=== PATIENT | female | born 2000 | race Caucasian/White ===

== ENCOUNTER 2022-09-21 23:17 | Emergency (ER) | payer OTHER ==
[2022-09-21 23:33] VITALS: TEMP 98
[2022-09-22 01:51] LABS: Basophils % (A) 0 %; Eosinophils # (A) 0.1 k/uL (0-0.7); Eosinophils % (A) 1 %; HCT 39.2 % (34.0-46.0); Lymphocytes # (A) 3.5 k/uL (1.0-4.8); Lymphocytes % (A) 40 %; MCH 30.6 pg (25.0-35.0); MCV 92.6 fL (80.0-100.0); Mean Platelet Volume 8.6; Monocytes # (A) 0.4 k/uL (0-1.0); Monocytes % (A) 5 %; Neutrophils # (A) 4.5 k/uL (1.3-7.7); Neutrophils % (A) 52 %; Platelet Count 361 k/uL (150-450); RBC 4.24 m/uL (3.80-5.40); WBC 8.7 k/uL (3.8-10.6)
[2022-09-22 02:02] LABS: ALT 15 U/L (4-34); AST 25 U/L (14-36); African American GFR (CKD) >90 (>60 ml/min/1.73 sqM); Albumin 4.2 g/dL (3.5-5.0); Alkaline Phosphatase 77 U/L (38-126); Anion Gap 11 mmol/L; Blood Urea Nitrogen 7 mg/dL (7-17); Calcium 9.4 mg/dL (8.4-10.2); Carbon Dioxide 22 mmol/L (22-30); Chloride 107 mmol/L (98-107); Glucose 98 mg/dL (74-99); Non-African American GFR(CKD) >90 (>60 ml/min/1.73 sqM); Potassium 4.1 mmol/L (3.5-5.1); Sodium 140 mmol/L (137-145); Total Bilirubin 0.2 mg/dL (0.2-1.3); Total Protein 7.5 g/dL (6.3-8.2)
[2022-09-22 02:12] LABS: Prothrombin Time 10.6 sec (9.0-12.0)
[2022-09-22 02:17] LABS: HCG,Quantitative Serum 2805.2 mIU/mL
--- NOTE | 2022-09-22 02:48 | US ---
EXAM: US First Trimester , Transabdominal CLINICAL HISTORY: pain TECHNIQUE: Real-time transabdominal obstetrical ultrasound of the maternal pelvis and a first trimester with image documentation. COMPARISON: No relevant prior studies available. FINDINGS: Gestation: There is an irregular hypoechoic structure noted centrally within the lower uterus, with a mean diameter consistent measuring 1.5 cm. No pole or yolk sac identified internally. Placenta/amniotic fluid: Cannot be adequately evaluated due to the early gestational age. Uterus/cervix: The uterus measures 7.2 x 5.2 x 4.1 cm. No myometrial mass. Ovaries: The right ovary measures 3.1 x 1.7 x 1.6 cm. The left ovary measures 2.4 x 1.6 x 1.4 cm. There is a cystic structure in the left ovary. No adnexal mass. Free fluid: No free fluid. IMPRESSION: There is an irregular hypoechoic structure noted centrally within the lower uterus, with a mean diameter consistent measuring 1.5 cm. No pole or yolk sac identified internally. While the mean sac diameter is consistent with an estimated gestational 5 weeks 5 days, which may be too early to evaluate for a detectable pole, irregularity of the gestational sac is suspicious for potential failure. Serial beta-hCG levels with potential short-term interval sonographic follow-up may be appropriate.
--- NOTE | 2022-09-22 03:20 | ED ---
Female Urogenital HPI - General Chief complaint: Vaginal Bleeding Stated complaint: Vaginal Bleeding, Dizziness Time Seen by Provider: 09/21/22 23:30 Source: patient Mode of arrival: ambulatory Limitations: no limitations - History of Present Illness Initial comments: 22-year-old female who is approximately 5-6 weeks who presents to the emergency department reporting vaginal bleeding. States that she just went to the clinic last week on . She had an ultrasound which did not demonstrate a yolk sac. She has an appointment to follow-up with Dr. Gaytan on Sunday. This evening the patient began having heavy vaginal bleeding. States that it is heavier than one of her normal menstrual cycles. There is some clots. States that she felt lightheaded. She called her OB office recommended that she come into the emergency room for evaluation. She admits some lower abdominal cramping. No nausea or vomiting. No other alleviating, precipitating or modifying factors - Related Data Previous Rx's Medication Instructions Recorded Ketorolac [Toradol] 10 mg PO TID #30 tab 09/24/22 Ondansetron Odt [Zofran Odt] 4 mg PO Q8HR PRN #20 tab 09/24/22 Allergies Allergy/AdvReac Type Severity Reaction Status Date / Time No Known Allergies Allergy Verified 09/21/22 23:33 Review of Systems ROS Statement: Those systems with pertinent positive or pertinent negative responses have been documented in the HPI. ROS Other: All systems not noted in ROS Statement are negative. Past Medical History Past Medical History: No Reported History History of Any Multi-Drug Resistant Organisms: None Reported Past Surgical History: Tonsillectomy Past Psychological History: Anxiety Smoking Status: Current some day smoker Past Alcohol Use History: Rare Past Drug Use History: Marijuana General Exam Limitations: no limitations General appearance: alert, in no apparent distress Head exam: Present: atraumatic, normocephalic, normal inspection Eye exam: Present: normal appearance, PERRL, EOMI. Absent: scleral icterus, conjunctival injection, periorbital swelling ENT exam: Present: normal exam, mucous membranes moist Neck exam: Present: normal inspection. Absent: tenderness, meningismus, lymphadenopathy Respiratory exam: Present: normal lung sounds bilaterally. Absent: respiratory distress, wheezes, rales, rhonchi, stridor Cardiovascular Exam: Present: regular rate, normal rhythm, normal heart sounds. Absent: systolic murmur, diastolic murmur, rubs, gallop, clicks GI/Abdominal exam: Present: soft, normal bowel sounds. Absent: distended, tende rness, guarding, rebound, rigid Extremities exam: Present: normal inspection, full ROM, normal capillary refill. Absent: tenderness, pedal edema, joint swelling, calf tenderness Back exam: Present: normal inspection Neurological exam: Present: alert, oriented X3, CN II-XII intact Psychiatric exam: Present: normal affect, normal mood Skin exam: Present: warm, dry, intact, normal color. Absent: rash Course Vital Signs 09/21/22 09/22/22 23:30 03:28 Temperature 98.0 F Pulse Rate 74 62 Respiratory 20 18 Rate Blood Pressure 108/75 106/73 O2 Sat by Pulse 98 97 Oximetry Medical Decision Making - Medical Decision Making Was pt. sent in by a medical professional or institution (, PA, PIN PULLER, urgent care, hospital, or fdc...) When possible be specific @ -LUMBER TRIMMER Did you speak to anyone other than the patient for history (EMS, parent, family, police, friend...)? What history was obtained from this source @ -No Did you review nursing and triage notes (agree or disagree)? Why? @ -I reviewed and agree with nursing and triage notes Were old charts reviewed (outside hosp., previous admission, EMS record, old EKG, old radiological studies, urgent care reports/EKG's, fdc records)? Report findings @ -No old charts were reviewed Differential Diagnosis (chest pain, altered mental status, abdominal pain women, abdominal pain men, vaginal bleeding, weakness, fever, dyspnea, syncope, headache, dizziness, GI bleed, back pain, seizure, CVA, palpatations, mental h ealth, musculoskeletal)? @ -Differential Vaginal Bleeding: Spontaneous , threatened , molar , ectopic , bloody show, incompetent cervix, abruptioplacenta, placenta previa, uterine rupture, dysfunctional uterine bleeding, hemorrhage, uterine fibroids, this is not meant to be an all-inclusive list. EKG interpreted by me (3pts min.). @ -Not completed X-rays interpreted by me (1pt min.). @ -None done CT interpreted by me (1pt min.). @ -None done U/S interpreted by me (1pt. min.). @ -Yes and demonstrates intrauterine structure with no pole or yolk sac What testing was considered but not performed or refused? (CT, X-rays, U/S, labs)? Why? @ -None What meds were considered but not given or refused? Why? @ -None Did you discuss the management of the patient with other professionals (professionals i.e. , PA, PIN PULLER, lab, RT, psych nurse, social insurance adviser, laboratory aide, teacher, telecommunications officer, bilingual patient support caseworker)? Give summary @ -No Was smoking cessation discussed for >3mins.? @ -No Was critical care preformed (if so, how long)? @ -No Were there social determinants of health that impacted care today? How? (Homelessness, low income, unemployed, alcoholism, drug addiction, tra nsportation, low edu. Level, literacy, decrease access to med. care, longterm, rehab)? @ -No Was there de-escalation of care discussed even if they declined (Discuss DNR or withdrawal of care, Hospice)? DNR status @ -No What co-morbidities impacted this encounter? (DM, HTN, Smoking, COPD, CAD, Cancer, CVA, ARF, Chemo, Hep., AIDS, mental health diagnosis, sleep apnea, morbid obesity)? @ -None Was patient admitted / discharged? Hospital course, mention meds given and route, prescriptions, significant lab abnormalities, going to OR and other pertinent info. @ -Upon arrival patient was placed in room 33. Thorough history and physical exam was performed. Laboratory studies were conducted. Beta Quant is 2805. Ultrasound demonstrates regular hypoechoic structure noted centrally within the lower uterus. No pole or yolk sac. Mean diameter is 5 weeks 5 days. This information is given to the patient. She will follow up on Sunday morning for repeat beta hCG. She is instructed to come to the ER for an outpatient draw. Results will be sent to her LUMBER TRIMMER. She will need a repeat ultrasound if the beta Quant is improving. If it is falling it needs to fall to 0 before she can attempt to get again. If she has any heavy bleeding or uncontrolle d pain the patient needs to return to the emergency room. Patient was agreeable and discharged in stable condition Undiagnosed new problem with uncertain prognosis? @ -Yes Drug Therapy requiring intensive monitoring for toxicity (Heparin, Nitro, Insulin, Cardizem)? @ -No Were any procedures done? @ -No Diagnosis/symptom? @ -Acute vaginal bleeding, of undetermined location, suspected intrauterine with threatened miscarriage Acute, or Chronic, or Acute on Chronic? @ -Acute Uncomplicated (without systemic symptoms) or Complicated (systemic symptoms)? @ -complicated Side effects of treatment? @ -No Exacerbation, Progression, or Severe Exacerbation? @ -No Poses a threat to life or bodily function? How? (Chest pain, USA, [place], pneumonia, PE, COPD, DKA, ARF, appy, cholecystitis, CVA, Diverticulitis, Homicidal, Suicidal, threat to staff... and all critical care pts) @ -yes - patient must make sure beta quant returns to zero or else could have significant complications from retained - Lab Data Result diagrams: 09/22/22 01:10 09/22/22 01:10 Lab Results 09/22/22 09/22/22 09/22/22 Range/Units 01:10 01:10 01:10 WBC 8.7 (3.8-10.6) k/uL RBC 4.24 (3.80-5.40) m/uL Hgb 13.0 (11.4-16.0) gm/dL Hct 39.2 (34.0-46.0) % MCV 92.6 (80.0-100.0) fL MCH 30.6 (25.0-35.0) pg MCHC 33.0 (31.0-37.0) g/dL RDW 13.0 (11.5-15.5) % Plt Count 361 (150-450) k/uL MPV 8.6 Neutrophils % 52 % Lymphocytes % 40 % Monocytes % 5 % Eosinophils % 1 % Basophils % 0 % Neutrophils # 4.5 (1.3-7.7) k/uL Lymphocytes # 3.5 (1.0-4.8) k/uL Monocytes # 0.4 (0-1.0) k/uL Eosinophils # 0.1 (0-0.7) k/uL Basophils # 0.0 (0-0.2) k/uL PT 10.6 (9.0-12.0) sec INR 1.0 (<1.2) Sodium 140 (137-145) mmol/L Potassium 4.1 (3.5-5.1) mmol/L Chloride 107 (98-107) mmol/L Carbon Dioxide 22 (22-30) mmol/L Anion Gap 11 mmol/L BUN 7 (7-17) mg/dL Creatinine 0.57 (0.52-1.04) mg/dL Est GFR (CKD-EPI)AfAm >90 (>60 ml/min/1.73 sqM) Est GFR (CKD-EPI)NonAf >90 (>60 ml/min/1.73 sqM) Glucose 98 (74-99) mg/dL Calcium 9.4 (8.4-10.2) mg/dL Total Bilirubin 0.2 (0.2-1.3) mg/dL AST 25 (14-36) U/L ALT 15 (4-34) U/L Alkaline Phosphatase 77 (38-126) U/L Total Protein 7.5 (6.3-8.2) g/dL Albumin 4.2 (3.5-5.0) g/dL HCG, Quant 2805.2 mIU/mL Blood Type Blood Type Recheck Bld Type Recheck Status Antibody Screen Spec Expiration Date 09/22/22 Range/Units 01:10 WBC (3.8-10.6) k/uL RBC (3.80-5.40) m/uL Hgb (11.4-16.0) gm/dL Hct (34.0-46.0) % MCV (80.0-100.0) fL MCH (25.0-35.0) pg MCHC (31.0-37.0) g/dL RDW (11.5-15.5) % Plt Count (150-450) k/uL MPV Neutrophils % % Lymphocytes % % Monocytes % % Eosinophils % % Basophils % % Neutrophils # (1.3-7.7) k/uL Lymphocytes # (1.0-4.8) k/uL Monocytes # (0-1.0) k/uL Eosinophils # (0-0.7) k/uL Basophils # (0-0.2) k/uL PT (9.0-12.0) sec INR (<1.2) Sodium (137-145) mmol/L Potassium (3.5-5.1) mmol/L Chloride (98-107) mmol/L Carbon Dioxide (22-30) mmol/L Anion Gap mmol/L BUN (7-17) mg/dL Creatinine (0.52-1.04) mg/dL Est GFR (CKD-EPI)AfAm (>60 ml/min/1.73 sqM) Est GFR (CKD-EPI)NonAf (>60 ml/min/1.73 sqM) Glucose (74-99) mg/dL Calcium (8.4-10.2) mg/dL Total Bilirubin (0.2-1.3) mg/dL AST (14-36) U/L ALT (4-34) U/L Alkaline Phosphatase (38-126) U/L Total Protein (6.3-8.2) g/dL Albumin (3.5-5.0) g/dL HCG, Quant mIU/mL Blood Type A Positive Blood Type Recheck No Previous Record Bld Type Recheck Status CABO Indicated Antibody Screen NEGATIVE Spec Expiration Date 09/25/20222309 Disposition Clinical Impression: Threatened miscarriage, Abnormal vaginal bleeding Disposition: HOME SELF-CARE Condition: Stable Instructions (If sedation given, give patient instructions): Threatened Miscarriage (ED) Additional Instructions: Please return to the ER on Sunday morning, preferably around 8 to 9 AM to have your blood drawn. Access your mychart to get the results. They will also be cc to Dr. Hanson. Return to the ER should you have heavy vaginal bleeding or uncontrolled pain Is patient prescribed a controlled substance at d/c from ED?: No Referrals: Lolly Bhardwaj MD [Primary Care Provider] - 1-2 days Barb Gaytan MD [STAFF PHYSICIAN] - 1-2 days Time of Disposition: 03:20
[2022-09-22 03:29] VITALS: BP 106/73; PULSE 62; RESP 18
== END 2022-09-22 03:28 | disposition home or self-care (01) ==
LOC: EC 23:17
DX: O20.0 Threatened abortion (principal); O99.331 Smoking (tobacco) complicating pregnancy, first trimester; F17.200 Nicotine dependence, unspecified, uncomplicated; O99.321 Drug use complicating pregnancy, first trimester; F12.90 Cannabis use, unspecified, uncomplicated; Z3A.01 Less than 8 weeks gestation of pregnancy
CPT/HCPCS: 36415; 76801; 80053; 84702; 85025; 85610; 86850; 86900; 86901; 99284

== ENCOUNTER 2022-09-24 01:11 | Emergency (ER) | payer OTHER ==
[2022-09-24] MEDS ORDERED: SODIUM CHLORIDE 0.9% 1,000 ML IV ONE (01:39)
[2022-09-24] MEDS ORDERED: KETOROLAC 15 MG/ML 1 ML VIAL IVP STA (01:39)
[2022-09-24] MEDS ORDERED: ONDANSETRON 4 MG/2 ML VIAL IVP STA (01:43)
[2022-09-24 01:59] LABS: Basophils % (A) 0 %; Eosinophils # (A) 0.1 k/uL (0-0.7); Eosinophils % (A) 1 %; HCT 39.2 % (34.0-46.0); HGB 12.8 gm/dL (11.4-16.0); Lymphocytes # (A) 3.9 k/uL (1.0-4.8); Lymphocytes % (A) 38 %; MCH 30.2 pg (25.0-35.0); MCHC 32.6 g/dL (31.0-37.0); MCV 92.7 fL (80.0-100.0); Mean Platelet Volume 8.4; Monocytes # (A) 0.4 k/uL (0-1.0); Monocytes % (A) 4 %; Neutrophils # (A) 5.7 k/uL (1.3-7.7); Neutrophils % (A) 55 %; Platelet Count 382 k/uL (150-450); RBC 4.23 m/uL (3.80-5.40); WBC 10.3 k/uL (3.8-10.6)
[2022-09-24 02:19] LABS: ALT 17 U/L (4-34); AST 22 U/L (14-36); African American GFR (CKD) >90 (>60 ml/min/1.73 sqM); Albumin 4.2 g/dL (3.5-5.0); Alkaline Phosphatase 73 U/L (38-126); Anion Gap 12 mmol/L; Blood Urea Nitrogen 9 mg/dL (7-17); Calcium 9.6 mg/dL (8.4-10.2); Carbon Dioxide 20 mmol/L (22-30); Chloride 106 mmol/L (98-107); Glucose 118 mg/dL (74-99); Lipase 86 U/L (23-300); Non-African American GFR(CKD) >90 (>60 ml/min/1.73 sqM); Potassium 3.8 mmol/L (3.5-5.1); Sodium 138 mmol/L (137-145); Total Bilirubin 0.2 mg/dL (0.2-1.3); Total Protein 7.5 g/dL (6.3-8.2)
[2022-09-24 02:36] LABS: HCG,Quantitative Serum 1544.2 mIU/mL
--- NOTE | 2022-09-24 02:51 | ED ---
General Adult HPI - General Chief complaint: Urogenital Stated complaint: 5 WEEKS AND CRAMPING Time Seen by Provider: 09/24/22 01:31 Source: patient Mode of arrival: ambulatory Limitations: no limitations - History of Present Illness Initial comments: This is a 22-year-old female with no past medical history presents emergency department for increased vaginal bleeding and suprapubic tenderness. The patient stated that she was seen here 2 days prior and had an ultrasound performed that he not show any viable and had a beta hCG level obtained. She was advised report back to the emergency department if she had continued bleeding. The patient does have a follow-up appointment with her MANAGER FRENCH on Sunday but stated that the pain and cramping became so severe that she wanted to come to the emergency department. The patient denied any lightheadedness or dizziness however. The patient did state that she went through 3 pads in the last hour with bleeding and clots and so she became concerned she came to the emergency department. The patient denied any other acute pain or complaints. The patient is a . - Related Data Previous Rx's Medication Instructions Recorded Ketorolac [Toradol] 10 mg PO TID #30 tab 09/24/22 Ondansetron Odt [Zofran Odt] 4 mg PO Q8HR PRN #20 tab 09/24/22 Allergies Allergy/AdvReac Type Severity Reaction Status Date / Time No Known Allergies Allergy Verified 09/21/22 23:33 Review of Systems ROS Statement: Those systems with pertinent positive or pertinent negative responses have been documented in the HPI. ROS Other: All systems not noted in ROS Statement are negative. Past Medical History Past Medical History: No Reported History History of Any Multi-Drug Resistant Organisms: None Reported Past Surgical History: Tonsillectomy Past Psychological History: Anxiety Smoking Status: Current some day smoker Past Alcohol Use History: Rare Past Drug Use History: Marijuana General Exam Limitations: no limitations General appearance: alert, in distress (Intermittent distress secondary to abdominal cramping) Head exam: Present: atraumatic, normocephalic, normal inspection Eye exam: Present: normal appearance, PERRL Pupils: Present: normal accommodation ENT exam: Present: normal exam, normal oropharynx, mucous membranes moist Neck exam: Present: normal inspection, full ROM Respiratory exam: Present: normal lung sounds bilaterally Cardiovascular Exam: Present: regular rate, normal rhythm, normal heart sounds GI/Abdominal exam: Present: soft, normal bowel sounds Rectal exam: Present: deferred External exam: Present: other (Vaginal bleeding noted on external exam) Speculum exam: Present: other (Speculum exam was deferred as the patient had one 2 days prior and stated that she was significantly uncomfortable did not want a second exam in 2 days.) Back exam: Present: normal inspection, full ROM Neurological exam: Present: alert, oriented X3, CN II-XII intact Psychiatric exam: Present: normal affect, normal mood Skin exam: Present: warm, dry Course Vital Signs 09/24/22 01:14 Temperature 97.7 F Pulse Rate 88 Respiratory 21 Rate Blood Pressure 125/78 O2 Sat by Pulse 97 Oximetry Medical Decision Making - Medical Decision Making Was pt. sent in by a medical professional or institution (JAMIL Mac, SWIMMING COACH, urgent care, hospital, or correction...) When possible be specific @ -No Did you speak to anyone other than the patient for history (EMS, parent, family, police, friend...)? What history was obtained from this source @ -No Did you review nursing and triage notes (agree or disagree)? Why? @ -I reviewed and agree with nursing and triage notes Were old charts reviewed (outside hosp., previous admission, EMS record, old EKG, old radiological studies, urgent care reports/EKG's, correction records)? Report findings @ -Yes, the patient's previous ultrasound performed on 09/22/2022 was reviewed Differential Diagnosis (chest pain, altered mental status, abdominal pain women, abdominal pain men, vaginal bleeding, weakness, fever, dyspnea, syncope, headache, dizziness, GI bleed, back pain, seizure, CVA, palpatations, mental health)? @ -Spontaneous , incomplete , bleeding in EKG interpreted by me (3pts min.). @ -None X-rays interpreted by me (1pt min.). @ -None done CT interpreted by me (1pt min.). @ -None done U/S interpreted by me (1pt. min.). @ -None done What testing was considered but not performed or refused? (CT, X-rays, U/S, labs)? Why? @ -A transvaginal ultrasound was considered however the patient arty had an ultrasound performed 2 days prior that confirms a likely failed and did recommend serial beta hCG evaluation. What meds were considered but not given or refused? Why? @ -None Did you discuss the management of the patient with other professionals (professionals i.e. , PA, SWIMMING COACH, lab, RT, psych nurse, social human services assistants, photography teacher, teacher, dental officer, showcase trimmer)? Give summary @ -No Was smoking cessation discussed for >3mins.? @ -No Was critical care preformed (if so, how long)? @ -No Were there social determinants of health that impacted care today? How? (Homelessness, low income, unemployed, alcoholism, drug addiction, transportation, low edu. Level, literacy, decrease access to med. care, fci, rehab)? @ -No Was there de-escalation of care discussed even if they declined (Discuss DNR or withdrawal of care, Hospice)? DNR status @ -No What co-morbidities impacted this encounter? (DM, HTN, Smoking, COPD, CAD, Cancer, CVA, ARF, Chemo, Hep., AIDS, mental health diagnosis, sleep apnea, morbid obesity)? @ -None Was patient admitted / discharged? Hospital course, mention meds given and route, prescriptions, significant lab abnormalities, going to OR and other pertinent info. @ -The patient was seen and evaluated emergency department. On physical exam, the patient was resting in bed without any acute distress. Vital signs admission were stable. The patient did have intermittent cramping abdominal pain on my evaluation. Laboratory workup was obtained and no ultrasound was performed at this time because there was a recent ultrasound arty performed 2 days prior. The patient did receive Toradol for her cramping as well as Zofran. Labs workup showed a beta hCG that had decreased from 4306-8347. Hemoglobin remain stable. In the setting of vaginal bleeding with clots and cramping and decreasing beta hCG, was likely the patient was having a spontaneous . The patient was told of these results and was understanding of this. The patient continued to remain stable however and did not require any further testing at this time. The patient had follow-up with her MANAGER FRENCH on Sunday already. The patient was given a prescription for Toradol as well as Zofran to be taken at home. The patient was advised to follow-up with MANAGER FRENCH for further workup and evaluation and to report back to the emergency department she had worsening bleeding, lightheadedness or dizziness. The patient was agreeable to this and all her questions were answered. The patient was discharged home in stable condition with her . Undiagnosed new problem with uncertain prognosis? @ -No Drug Therapy requiring intensive monitoring for toxicity (Heparin, Nitro, Insulin, Cardizem)? @ -No Were any procedures done? @ -No Diagnosis/symptom? @ -Spontaneous Acute, or Chronic, or Acute on Chronic? @ -Acute Uncomplicated (without systemic symptoms) or Complicated (systemic symptoms)? @ -Uncomplicated Side effects of treatment? @ -No Exacerbation, Progression, or Severe Exacerbation? @ -No Poses a threat to life or bodily function? How? (Chest pain, [place], [place], pneumonia, PE, COPD, DKA, ARF, appy, cholecystitis, CVA, Diverticulitis, Homicidal, Suicidal, threat to staff... and all critical care pts) @ -No - Lab Data Result diagrams: 09/24/22 01:52 09/24/22 01:52 Lab Results 09/24/22 09/24/22 Range/Units 01:52 01:52 WBC 10.3 (3.8-10.6) k/uL RBC 4.23 (3.80-5.40) m/uL Hgb 12.8 (11.4-16.0) gm/dL Hct 39.2 (34.0-46.0) % MCV 92.7 (80.0-100.0) fL MCH 30.2 (25.0-35.0) pg MCHC 32.6 (31.0-37.0) g/dL RDW 13.0 (11.5-15.5) % Plt Count 382 (150-450) k/uL MPV 8.4 Neutrophils % 55 % Lymphocytes % 38 % Monocytes % 4 % Eosinophils % 1 % Basophils % 0 % Neutrophils # 5.7 (1.3-7.7) k/uL Lymphocytes # 3.9 (1.0-4.8) k/uL Monocytes # 0.4 (0-1.0) k/uL Eosinophils # 0.1 (0-0.7) k/uL Basophils # 0.0 (0-0.2) k/uL Sodium 138 (137-145) mmol/L Potassium 3.8 (3.5-5.1) mmol/L Chloride 106 (98-107) mmol/L Carbon Dioxide 20 L (22-30) mmol/L Anion Gap 12 mmol/L BUN 9 (7-17) mg/dL Creatinine 0.58 (0.52-1.04) mg/dL Est GFR (CKD-EPI)AfAm >90 (>60 ml/min/1.73 sqM) Est GFR (CKD-EPI)NonAf >90 (>60 ml/min/1.73 sqM) Glucose 118 H (74-99) mg/dL Calcium 9.6 (8.4-10.2) mg/dL Total Bilirubin 0.2 (0.2-1.3) mg/dL AST 22 (14-36) U/L ALT 17 (4-34) U/L Alkaline Phosphatase 73 (38-126) U/L Total Protein 7.5 (6.3-8.2) g/dL Albumin 4.2 (3.5-5.0) g/dL Lipase 86 (23-300) U/L HCG, Quant 1544.2 mIU/mL Disposition Clinical Impression: Spontaneous Disposition: HOME SELF-CARE Condition: Stable Instructions (If sedation given, give patient instructions): Miscarriage (ED) Prescriptions: Ketorolac [Toradol] 10 mg PO TID #30 tab Ondansetron Odt [Zofran Odt] 4 mg PO Q8HR PRN #20 tab PRN Reason: Nausea Is patient prescribed a controlled substance at d/c from ED?: No Referrals: Lolly Bhardwaj MD [Primary Care Provider] - 1-2 days Barb Gaytan MD [STAFF PHYSICIAN] - 09/27/22 Time of Disposition: 02:40
[2022-09-24 03:33] VITALS: BP 108/70; PULSE 60; RESP 18; TEMP 97.9
== END 2022-09-24 03:59 | disposition home or self-care (01) ==
LOC: EC 01:11
DX: O03.9 Complete or unspecified spontaneous abortion without complication (principal); O99.331 Smoking (tobacco) complicating pregnancy, first trimester; F17.200 Nicotine dependence, unspecified, uncomplicated; F12.90 Cannabis use, unspecified, uncomplicated; Z86.59 Personal history of other mental and behavioral disorders; Z3A.01 Less than 8 weeks gestation of pregnancy
CPT/HCPCS: 36415; 80053; 83690; 85025; 84702; 99284; 96374; 96375; 96361; J2405; J1885

== ENCOUNTER 2023-01-22 12:02 | Emergency (ER) | payer BC, OTHER ==
[2023-01-22 12:41] VITALS: PULSE 66
[2023-01-22] MEDS ORDERED: SODIUM CHLORIDE 0.9% 1,000 ML IV STA (12:54)
[2023-01-22] MEDS ORDERED: SODIUM CHLORIDE 0.9% 500 ML 500 ML IV STA (12:54)
--- NOTE | 2023-01-22 12:57 | ED ---
General Adult HPI - General Chief complaint: Nausea/Vomiting/Diarrhea Stated complaint: constant nausea, vomiting, Time Seen by Provider: 01/22/23 12:45 Source: patient, RN notes reviewed, old records reviewed Mode of arrival: ambulatory Limitations: no limitations - History of Present Illness Initial comments: 22-year-old female presenting with 4 days of nausea and vomiting, multiple episodes. Patient is currently approximately 7 weeks . She followed with obstetrics and has had a confirmatory ultrasound. She denies any abdominal pain. No vaginal bleeding. Fever. No dysuria. Patient has been taking Zofran at home with minimal relief but states she ran out of this medication. - Related Data Previous Rx's Medication Instructions Recorded Ketorolac [Toradol] 10 mg PO TID #30 tab 09/24/22 Ondansetron Odt [Zofran Odt] 4 mg PO Q8HR PRN #20 tab 09/24/22 Cephalexin [Keflex] 500 mg PO Q12HR #20 cap 01/22/23 Ondansetron Odt [Zofran Odt] 4 mg PO Q8HR PRN #10 tab 01/22/23 Allergies Allergy/AdvReac Type Severity Reaction Status Date / Time No Known Allergies Allergy Verified 01/22/23 12:25 Review of Systems ROS Statement: Those systems with pertinent positive or pertinent negative responses have been documented in the HPI. ROS Other: All systems not noted in ROS Statement are negative. Past Medical History Past Medical History: No Reported History History of Any Multi-Drug Resistant Organisms: None Reported Past Surgical History: Tonsillectomy Past Psychological History: Anxiety Smoking Status: Current some day smoker Past Alcohol Use History: Rare Past Drug Use History: Marijuana General Exam Limitations: no limitations General appearance: alert, in no apparent distress Head exam: Present: atraumatic, normocephalic Eye exam: Present: normal appearance, PERRL ENT exam: Present: mucous membranes dry Neck exam: Present: normal inspection. Absent: tenderness, meningismus Respiratory exam: Present: normal lung sounds bilaterally. Absent: respiratory distress, wheezes Cardiovascular Exam: Present: regular rate, normal rhythm GI/Abdominal exam: Present: soft. Absent: distended, tenderness, guarding, rebound Neurological exam: Present: alert, oriented X3, CN II-XII intact. Absent: motor sensory deficit Psychiatric exam: Present: normal affect, normal mood Skin exam: Present: dry, intact. Absent: cyanosis, diaphoretic Course Vital Signs 01/22/23 12:25 Temperature 98.7 F Pulse Rate 66 Respiratory 18 Rate Blood Pressure 117/72 O2 Sat by Pulse 98 Oximetry Medical Decision Making - Medical Decision Making Was pt. sent in by a medical professional or institution (JAMIL Mac, TAX PROFESSIONAL, urgent care, hospital, or assisted...) When possible be specific @ -[No] Did you speak to anyone other than the patient for history (EMS, parent, family, police, friend...)? What history was obtained from this source @ -[No] Did you review nursing and triage notes (agree or disagree)? Why? @ -[I reviewed and agree with nursing and triage notes] Were old charts reviewed (outside hosp., previous admission, EMS record, old EKG, old radiological studies, urgent care reports/EKG's, assisted records)? Report findings @ -[No old charts were reviewed] Differential Diagnosis (chest pain, altered mental status, abdominal pain women, abdominal pain men, vaginal bleeding, weakness, fever, dyspnea, syncope, headache, dizziness, GI bleed, back pain, seizure, CVA, palpatations, mental health, musculoskeletal)? @ Nausea vomiting in , hyperemesis gravidarum EKG interpreted by me (3pts min.). @ -[As above] X-rays interpreted by me (1pt min.). @ -[None done] CT interpreted by me (1pt min.). @ -[None done] U/S interpreted by me (1pt. min.). @ -[None done] What testing was considered but not performed or refused? (CT, X-rays, U/S, labs)? Why? @ -[None] What meds were considered but not given or refused? Why? @ -[None] Did you discuss the management of the patient with other professionals (patrizia tripathi i.e. JAMIL Mac, TAX PROFESSIONAL, lab, RT, psych nurse, social services analyst, material handler loader, teacher, medical officer, business case analyst)? Give summary @ -[No] Was smoking cessation discussed for >3mins.? @ -[No] Was critical care preformed (if so, how long)? @ -[No] Were there social determinants of health that impacted care today? How? (Homelessness, low income, unemployed, alcoholism, drug addiction, transpo rtation, low edu. Level, literacy, decrease access to med. care, long term, rehab)? @ -[No] Was there de-escalation of care discussed even if they declined (Discuss DNR or withdrawal of care, Hospice)? DNR status @ -[No] What co-morbidities impacted this encounter? (DM, HTN, Smoking, COPD, CAD, Cancer, CVA, ARF, Chemo, Hep., AIDS, mental health diagnosis, sleep apnea, morbid obesity)? @ -[Current Was patient admitted / discharged? Hospital course, mention meds given and route, prescriptions, significant lab abnormalities, going to OR and other pertinent info. @ -[22-year-old female with one previous miscarriage presenting for evaluation of nausea vomiting in . She is approximately 7 weeks . She has no abdominal pain, no vaginal bleeding. She's given 1.5 L of normal saline in the emergency department. She has a white count of 15.9 which is likely reactive. She is somewhat hemoconcentrated and mildly acidotic with a CO2 of 15. She has an asymptomatic bacteriuria which will be treated with antibiotics. She is instructed to follow closely with obstetrics, to attempt to maintain hydration. Return parameters are discussed. She will try doxylamine and vitamin B6. She will be given Zofran if these medications do not work. Undiagnosed new problem with uncertain prognosis? @ -[No] Drug Therapy requiring intensive monitoring for toxicity (Heparin, Nitro, Insuli n, Cardizem)? @ -[No] Were any procedures done? @ -[No] Diagnosis/symptom? @ Nausea vomiting in . Acute, or Chronic, or Acute on Chronic? @ -Acute Uncomplicated (without systemic symptoms) or Complicated (systemic symptoms)? @ -[default] Side effects of treatment? @ -[No] Exacerbation, Progression, or Severe Exacerbation? @ -[No] Poses a threat to life or bodily function? How? (Chest pain, [place], [place], pneumonia, PE, COPD, DKA, ARF, appy, cholecystitis, CVA, Diverticulitis, Homicidal, Suicidal, threat to staff... and all critical care pts) @ -[Low risk at this time - Lab Data Result diagrams: 01/22/23 13:00 01/22/23 13:00 Lab Results 01/22/23 01/22/23 01/22/23 Range/Units 13:00 13:00 13:00 WBC 15.9 H (3.8-10.6) k/uL RBC 4.93 (3.80-5.40) m/uL Hgb 14.3 (11.4-16.0) gm/dL Hct 43.6 (34.0-46.0) % MCV 88.3 (80.0-100.0) fL MCH 29.1 (25.0-35.0) pg MCHC 32.9 (31.0-37.0) g/dL RDW 13.9 (11.5-15.5) % Plt Count 482 H (150-450) k/uL MPV 8.4 Neutrophils % 87 % Lymphocytes % 9 % Monocytes % 3 % Eosinophils % 0 % Basophils % 0 % Neutrophils # 13.9 H (1.3-7.7) k/uL Lymphocytes # 1.5 (1.0-4.8) k/uL Monocytes # 0.5 (0-1.0) k/uL Eosinophils # 0.0 (0-0.7) k/uL Basophils # 0.0 (0-0.2) k/uL Sodium 137 (137-145) mmol/L Potassium 3.9 (3.5-5.1) mmol/L Chloride 100 (98-107) mmol/L Carbon Dioxide 15 L (22-30) mmol/L Anion Gap 22 mmol/L BUN 10 (7-17) mg/dL Creatinine 0.52 (0.52-1.04) mg/dL Est GFR (CKD-EPI)AfAm >90 (>60 ml/min/1.73 sqM) Est GFR (CKD-EPI)NonAf >90 (>60 ml/min/1.73 sqM) Glucose 106 H (74-99) mg/dL Calcium 10.6 H (8.4-10.2) mg/dL Total Bilirubin 0.8 (0.2-1.3) mg/dL AST 21 (14-36) U/L ALT 14 (4-34) U/L Alkaline Phosphatase 87 (38-126) U/L Total Protein 9.6 H (6.3-8.2) g/dL Albumin 5.3 H (3.5-5.0) g/dL Urine Color Yellow Urine Appearance Clear (Clear) Urine pH 5.5 (5.0-8.0) Ur Specific [place] >1.030 (1.001-1.035) Urine Protein 1+ (Negative) Urine Glucose (UA) Negative (Negative) Urine Ketones 4+ (Negative) Urine Blood Trace (Negative) Urine Nitrite Negative (Negative) Urine Bilirubin Negative (Negative) Urine Urobilinogen 2.0 (<2.0) mg/dL Ur Leukocyte Esterase Negative (Negative) Urine RBC 4 (0-5) /hpf Urine WBC 4 (0-5) /hpf Ur Squamous Epith Cells 6 H (0-4) /hpf Urine Bacteria Rare H (None) /hpf Hyaline Casts 15 H (0-2) /lpf Urine Mucus Many H (None) /hpf Disposition Clinical Impression: Nausea/vomiting in Disposition: HOME SELF-CARE Condition: Fair Instructions (If sedation given, give patient instructions): Nausea and Vomiting in (ED) Additional Instructions: Please take vitamin B6 and doxylamine [id number] for nausea vomiting. Prescriptions: Cephalexin [Keflex] 500 mg PO Q12HR #20 cap Ondansetron Odt [Zofran Odt] 4 mg PO Q8HR PRN #10 tab PRN Reason: Vomiting Is patient prescribed a controlled substance at d/c from ED?: No Referrals: Lolly Bhardwaj MD [Primary Care Provider] - 1-2 days Melissa Washington DO [Doctor of Osteopathic Medicine] - 1-2 days Time of Disposition: 15:30
[2023-01-22 13:15] LABS: Basophils % (A) 0 %; Eosinophils % (A) 0 %; HCT 43.6 % (34.0-46.0); HGB 14.3 gm/dL (11.4-16.0); Lymphocytes # (A) 1.5 k/uL (1.0-4.8); Lymphocytes % (A) 9 %; MCH 29.1 pg (25.0-35.0); MCHC 32.9 g/dL (31.0-37.0); MCV 88.3 fL (80.0-100.0); Mean Platelet Volume 8.4; Monocytes # (A) 0.5 k/uL (0-1.0); Monocytes % (A) 3 %; Neutrophils # (A) 13.9 k/uL (1.3-7.7); Neutrophils % (A) 87 %; Platelet Count 482 k/uL (150-450); RBC 4.93 m/uL (3.80-5.40); RDW 13.9 % (11.5-15.5); WBC 15.9 k/uL (3.8-10.6)
[2023-01-22 13:30] LABS: ALT 14 U/L (4-34); AST 21 U/L (14-36); African American GFR (CKD) >90 (>60 ml/min/1.73 sqM); Albumin 5.3 g/dL (3.5-5.0); Alkaline Phosphatase 87 U/L (38-126); Anion Gap 22 mmol/L; Blood Urea Nitrogen 10 mg/dL (7-17); Calcium 10.6 mg/dL (8.4-10.2); Carbon Dioxide 15 mmol/L (22-30); Chloride 100 mmol/L (98-107); Glucose 106 mg/dL (74-99); Non-African American GFR(CKD) >90 (>60 ml/min/1.73 sqM); Potassium 3.9 mmol/L (3.5-5.1); Sodium 137 mmol/L (137-145); Total Bilirubin 0.8 mg/dL (0.2-1.3); Total Protein 9.6 g/dL (6.3-8.2)
[2023-01-22 13:36] LABS: Bacteria,Urine Rare /hpf; Hyaline Casts,Urine 15 /lpf (0-2); Mucus,Urine Many /hpf; RBC,Urine 4 /hpf (0-5); Squamous Epithelial Cell,Urine 6 /hpf (0-4); WBC,Urine 4 /hpf (0-5)
[2023-01-22 13:40] LABS: Color,Urine Yellow
[2023-01-22 13:41] LABS: Appearance,Urine Clear (Clear); Bilirubin,Urine Negative (Negative); Glucose,Urine (UA) Negative (Negative); Ketones,Urine 4+ (Negative); PH, Urine 5.5 (5.0-8.0); Protein,Urine 1+ (Negative); Specific Gravity,Urine >1.030 (1.001-1.035)
[2023-01-22 13:42] LABS: Blood,Urine Trace (Negative); Leukocyte Esterase,Urine Negative (Negative); Nitrite,Urine Negative (Negative)
[2023-01-22 16:21] VITALS: BP 102/67; RESP 16; TEMP 98.2
== END 2023-01-22 16:17 | disposition home or self-care (01) ==
LOC: EC 12:02
DX: O21.9 Vomiting of pregnancy, unspecified (principal); O99.331 Smoking (tobacco) complicating pregnancy, first trimester; F17.200 Nicotine dependence, unspecified, uncomplicated; F12.90 Cannabis use, unspecified, uncomplicated; Z86.59 Personal history of other mental and behavioral disorders; Z3A.01 Less than 8 weeks gestation of pregnancy
CPT/HCPCS: 36415; 80053; 81001; 85025; 96360; 96361; 99284

== ENCOUNTER 2023-09-06 09:53 | Outpatient (CLI) | payer BC ==
[2023-09-06 12:25] VITALS: BP 136/64; PULSE 82; RESP 16; TEMP 97
--- NOTE | 2023-09-15 12:30 | P.MSEPDOC ---
Presenting Problems - Arrival Data Date of Arrival on Unit: 09/06/23 Time of Arrival on Unit: 09:53 Mode of Transport: Ambulatory - Complaint OB-Reason for Admission/Chief Complaint: Possible Onset of Labor, Rule Out SROM Medical History - Information : 2 Para: 0 Term: 0 : 0 Abortions: Spontaneous or Elective: 1 Number of Living Children: 0 - Gestational Age Gestational Age by EMRE (wks/days): 40 Weeks and 0 Days - History Complications: Other Comment: Patient admits to use of marijuana for her nausea Review of Systems - Review of Systems Constitutional: No problems Breast: No problems ENT: No problems Cardiovascular: No problems Respiratory: No problems Gastrointestinal: No problems Genitourinary: No problems Musculoskeletal: No problems Neurological: No problems Skin: No problems Vital Signs - Temperature Temperature: 97.0 F Temperature Source: Temporal Artery Scan - Pulse Pulse Oximetery Pulse Rate: 82 Pulse Assessment Method: Pulse Oximetry - Respirations Respiratory Rate: 16 Oxygen Delivery Method: Room Air O2 Sat by Pulse Oximetry: 97 - Blood Pressure Right Arm Blood Pressure: 136/64 Blood Pressure Mean: 88 Blood Pressure Source: Automatic Cuff Medical Screen Scoring - Cervical Exam Dilation (cm): 3 Effacement (%): 70 Station: -2 Membranes: Intact - Uterine Contractions Frequency From (mins): 6 Frequency To (mins): 10 Intensity: Mild Resting: Soft to palpation - Assessment - Baby A Baseline FHR: 130 Heart Rate - NICHD Category: Category I (Normal) NST: Reactive Physician Notification - Physician Notified Physician Notified Date: 09/06/23 Physician Notified Time: 11:31 Physician: Melissa Washington New Order Received: Yes - Notification Comment Comment: Reactive NST, vital signs stable, amniosure negative, and no cervical change in the hour. Scheduled follow up in office tomorrow 09/07/23 Maternal Triage Index - Maternal Triage Index Presenting for scheduled procedure w/no complaint: No - Stat/Priority 1 Stat Priority 1: No - Urgent/Priority 2 Urgent Priority 2: No - Prompt/Priority 3 Prompt Priority 3: Yes Criteria Met for Priority 3: Patient 40week gestation in for rule out SROM and Labor Disposition - Disposition OB Disposition: Triage, Discharge to home, Written follow up instructions reviewed Discharge Date: 06/06/24 Discharge Time: 11:45 I agree with the RN Medical Screening Exam: Yes Case reviewed; plan agreed upon as documented in EMR&OBIX.: Yes Diagnosis: FALSE LABOR BEFORE 37 COMPLETED WEEKS OF GEST, THIRD TRI
== END 2023-09-06 11:45 | disposition home or self-care (01) ==
LOC: FBPOP 09:53
PROVIDERS: ATTEND Obstetrics & Gynecology
DX: O47.1 False labor at or after 37 completed weeks of gestation (principal); Z3A.40 40 weeks gestation of pregnancy
CPT/HCPCS: 59025; 84112; 99213

== ENCOUNTER 2023-09-09 07:26 | Inpatient (IN) | payer BC ==
[2023-09-09] MEDS ORDERED: TERBUTALINE 1 MG/ML VIAL SQ PRN (07:52)
[2023-09-09] MEDS ORDERED: TRANEXAMIC 1,000 MG/100ML-NACL 1,000 MG in EMPTY BAG 1 BAG IV PRN (07:52)
[2023-09-09] MEDS ORDERED: CARBOPROST TROMETHAMINE 250 MCG/ML 1 ML AMP IM PRN (07:52)
[2023-09-09] MEDS ORDERED: OXYTOCIN 10 UNIT/ML 1 ML VIAL IM PRN (07:52)
[2023-09-09] MEDS ORDERED: METHYLERGONOVINE 0.2 MG/ML 1 ML AMP IM PRN (07:52)
[2023-09-09] MEDS ORDERED: miSOPROStoL 200 MCG TAB PO PRN (07:52)
[2023-09-09] MEDS ORDERED: LIDOCAINE 0.5% (PF) 5 MG/ML (50 ML SDV) SQ PRN (07:52)
[2023-09-09] MEDS ORDERED: NALBUPHINE 10 MG/ML (10 ML MDV) IV PRN (08:09)
[2023-09-09] MEDS: LACTATED RINGERS 1,000 ML IV SCH (08:12)
[2023-09-09] MEDS: PENICILLIN G POTASSIUM 5,000,000 UNIT in DEXTROSE 5% IN WATER 100 ML IVPB STA (08:12)
--- NOTE | 2023-09-09 08:14 | P.HPOB ---
History of Present Illness H&P Date: 09/09/23 Chief Complaint: 40-2/7 weeks, labor The patient is a 22-year-old 2 para 0-0-1-0 admitted at 40-2/7 weeks as established by last menstrual period and confirmed by second trimester ultrasound. She is admitted in early active labor with cervical dilation of 5 cm and regular contractions. Amniotic membranes are intact. Her has been uncomplicated though she is known to be group B strep status positive. Obstetrical history: 2 para 0-0-1-0 with 1 early loss. Current statistics are listed in the history of present illness. EDC of 09/07/2023 was established by last menstrual period and confirmed by second trimester ultrasound. Laboratory workup demonstrates a blood type of A+ with a negative antibody screen. Rubella status is immune. The remainder of the laboratory workup was within normal limits. 1 hour Glucola was normal and group B strep status is positive. Gynecologic history: Unremarkable with no history of any infections to include STDs. Review of Systems Review of systems is confined to history of present illness. Past Medical History Past Medical History: No Reported History History of Any Multi-Drug Resistant Organisms: None Reported Past Surgical History: Tonsillectomy Smoking Status: Current some day smoker Medications and Allergies Home Medications Medication Instructions Recorded Confirmed Type No Known Home Medications 09/06/23 09/09/23 History Allergies Allergy/AdvReac Type Severity Reaction Status Date / Time No Known Allergies Allergy Verified 09/09/23 07:51 Exam Intake and Output 09/08/23 09/09/23 09/09/23 22:59 06:59 14:59 Other: Weight 97.522 kg In general, this is a well-developed, mildly obese white female in some discomfort as she is in her the early portion of the active phase of labor. Her heart has a regular rhythm and rate without murmur. Her lungs are clear to auscultation bilaterally in all almanza. Her abdomen is gravid, nondistended, has normal active bowel sounds, soft, nontender, and without any palpable masses aside from the uterine fundus. Her extremities are without any cyanosis, clubbing, or edema and are nontender to palpation bilaterally. Digital cervical examination performed by the nursing staff demonstrates her cervix to be 5 cm dilated, 100% effaced, with the vertex and presentation at -2 station. Amniotic membranes are intact. Assessment and Plan (1) Group B streptococcal infection in Current Visit: Yes Status: Acute Code(s): O98.819 - OTH MATERNAL INFEC/PARASTC DISEASES COMP PREG, UNSP TRI; B95.1 - STREPTOCOCCUS, GROUP B, CAUSING DISEASES CLASSD ELSWHR SNOMED Code(s): 935739182 (2) Active labor at term Current Visit: Yes Status: Acute Code(s): TDS0577 - SNOMED Code(s): 86288081 Plan: Antibiotic prophylaxis will be started immediately. We will wait to perform artificial rupture of membranes in order to attempt to have antibiotics on board long enough for safety. She will continue to have close maternal and surveillance and expectant management will be practiced. She is a good candidate for either IV, epidural, or OB nitrous analgesia, whichever she may choose. She has requested an epidural be placed and will be done shortly.
[2023-09-09 08:34] LABS: Basophils % (A) 0 %; Eosinophils # (A) 0.1 k/uL (0-0.7); Eosinophils % (A) 1 %; HGB 9.8 gm/dL (11.4-16.0); Hypochromasia Moderate; Lymphocytes % (A) 16 %; MCH 26.2 pg (25.0-35.0); MCHC 31.7 g/dL (31.0-37.0); MCV 82.6 fL (80.0-100.0); Monocytes # (A) 0.5 k/uL (0-1.0); Monocytes % (A) 4 %; Neutrophils # (A) 9.9 k/uL (1.3-7.7); Neutrophils % (A) 78 %; Platelet Count 362 k/uL (150-450); RBC 3.75 m/uL (3.80-5.40); RDW 14.7 % (11.5-15.5); WBC 12.7 k/uL (3.8-10.6)
[2023-09-09] MEDS ORDERED: fentaNYL (PF) 50 MCG/ML 5 ML AMP ONE (08:37)
[2023-09-09] MEDS ORDERED: ROPIVACAINE 5 MG/ML 30 ML VIAL ONE (08:37)
[2023-09-09] MEDS ORDERED: SODIUM CHLORIDE 0.9% 250 ML BAG ONE (08:37)
[2023-09-09 10:37] LABS: Amphetamine Screen,Urine Not Detected (NotDetected); Barbiturate Screen,Urine Not Detected (NotDetected); Benzodiazepines Screen,Urine Not Detected (NotDetected); Cocaine Screen,Urine Not Detected (NotDetected); Methadone Screen, Urine Not Detected (NotDetected); Opiate Screen,Urine Not Detected (NotDetected); Oxycodone Screen, Urine Not Detected (NotDetected); Phencyclidine Screen,Urine Not Detected (NotDetected); Tricyclic Antidepressant,Urine Not Detected (NotDetected); Urn Cannabinoid Scrn Detected (NotDetected)
[2023-09-09] MEDS: PENICILLIN G POTASSIUM 2,500,000 UNIT in DEXTROSE 5% IN WATER 100 ML IVPB SCH (12:04)
[2023-09-09] MEDS: OXYTOCIN 30 UNITS/500 ML NS 30 UNIT in SALINE 1 500ML.BAG IV SCH (14:05)
[2023-09-09] MEDS ORDERED: KETAMINE HCL IN 0.9 % NACL 50 MG/5 ML SYRINGE ONE (18:44)
[2023-09-09] MEDS ORDERED: OXYTOCIN 30 UNITS/500 ML NS BAG IV ONE (18:44)
[2023-09-09] MEDS ORDERED: MORPHINE SULFATE (PF) 0.3 MG/0.3 ML SYR ONE (18:44)
[2023-09-09] MEDS ORDERED: diphenhydrAMINE 50 MG/ML 1 ML VIAL IVP PRN ×3 (19:08→22:26)
[2023-09-09] MEDS ORDERED: NALOXONE 0.4 MG/ML 1 ML VIAL IV PRN ×2 (19:08→22:26)
[2023-09-09] MEDS: ONDANSETRON 4 MG/2 ML VIAL IVP PRN (19:57)
[2023-09-09] MEDS ORDERED: METOCLOPRAMIDE 5 MG/ML 2 ML VIAL IVP PRN (22:26)
[2023-09-09] MEDS ORDERED: ZOLPIDEM 5 MG TAB PO PRN (22:26)
[2023-09-09] MEDS ORDERED: diphenhydrAMINE 50 MG CAP PO PRN (22:26)
[2023-09-09] MEDS ORDERED: diphenhydrAMINE 25 MG CAP PO PRN (22:26)
[2023-09-09] MEDS ORDERED: ONDANSETRON 4 MG/2 ML VIAL IVP PRN (22:26)
[2023-09-09] MEDS: KETOROLAC 15 MG/ML 1 ML VIAL IVP SCH (22:39)
[2023-09-10] MEDS: ACETAMINOPHEN TAB 500 MG TAB PO SCH (01:52)
[2023-09-10 06:13] LABS: Basophils % (A) 0 %; Eosinophils % (A) 0 %; HCT 20.8 % (34.0-46.0); Hypochromasia Slight; Lymphocytes % (A) 10 %; MCH 25.4 pg (25.0-35.0); MCHC 31.2 g/dL (31.0-37.0); MCV 81.4 fL (80.0-100.0); Mean Platelet Volume 10.9; Monocytes % (A) 5 %; Neutrophils # (A) 17.9 k/uL (1.3-7.7); Neutrophils % (A) 85 %; Platelet Count 273 k/uL (150-450); RBC 2.55 m/uL (3.80-5.40); RDW 14.9 % (11.5-15.5); WBC 21.2 k/uL (3.8-10.6)
[2023-09-10 06:29] LABS: HGB 6.5 gm/dL (11.4-16.0)
--- NOTE | 2023-09-10 06:40 | P.PN ---
Progress Note - Text Progress Note Date: 09/10/23 Postoperative day 1 status post section under epidural anesthesia, and epidural morphine given for postoperative analgesia, patient doing well, there is no anesthesia related complications, Patient had no headache, vital signs stable , Assessment and plan= postop day 1 status post , doing well there is no anesthesia related complication.
[2023-09-10] MEDS: LACTATED RINGERS 1,000 ML IV SCH (07:58)
[2023-09-10] MEDS: SENNOSIDES-DOCUSATE SODIUM 1 EACH TAB PO SCH (07:59)
[2023-09-10] MEDS: IBUPROFEN 600 MG TAB PO SCH (08:23)
--- NOTE | 2023-09-10 09:38 | P.OP ---
Date of Procedure: 09/09/23 Preoperative Diagnosis: 1. arrest of second stage of labor 2. category 2 heart tones. Postoperative Diagnosis: same Procedure(s) Performed: primary low transverse Anesthesia: epidural (f) Surgeon: Melissa Washington Cotton Feeder #1: Adrien Valencia Estimated Blood Loss (ml): 868 IV fluids (ml): 1,000 Urine output (ml): 200 Pathology: none sent Condition: stable Disposition: floor Indications for Procedure: Patient presented in active labor. Amniotomy was performed and patient did progress to complete. She started pushing and the heart tones started to be category 2 with repetitive decelerations Category II FHT managed following algorithm including initiation of corrective measure position changes, oxygen, IV fluids. With the persistent presence of decelerations of the heart tones, a patient-centered huddle was held by nursing staff and Dr Valencia and the need for an expedited deliver was discussed with the patient. It was their clinical recommendation to proceed with the delivery and after questions were answered to the patient agrees to proceed with the recommended plan. Dr Abbasi then called me in for . He also stated there was a persistent anterior lip that would not go away with pushing. Operative Findings: viable female, 9,9, weight 7#10oz. Normal uterus, tubes, ovaries. Description of Procedure: Patient was taken to the operating room where epidural anesthesia was found be adequate. She was prepped and draped in normal sterile fashion in dorsal supine position with a leftward tilt. Pfannenstiel skin incision was made the scalpel and carried through to the underlying layer of fascia with the scalpel. Fascia was incised in midline and carried bilaterally with the [place] scissors. The superior aspect of the fascial incision was grasped with [place] clamps elevated and the underlying rectus muscles dissected off with the [place]'s. Attention was then turned to inferior aspect of same incision which in a similar fashion was grasped tented up and the underlying rectus muscles dissected off with the [place]'s. The rectus muscles were the midline and the peritoneum was identified tented up and entered sharply with the scalpel. The incision was extended superiorly and inferiorly with good visualization of the bladder. The bladder blade was inserted and the vesicouterine peritoneum was incised the [place] then carried bilaterally and bladder flap created digitally. A low transverse incision was then made on the uterus with the scalpel. This was car ried bilaterally and digital manner. 's head delivered atraumatically, nose and mouth bulb suctioned, cord clamped and cut, handed off to waiting nurses. Apgars 9,9, weight 7 lbs. 10 oz. Placenta delivered manually, intact with three-vessel cord. The uterus is exteriorized and cleared of all clots and debris. The uterine incision was closed with 0 Vicryl in a running locked fashion. Second layer of the same sutures used in imbricating fashion to obtain excellent hemostasis. Bladder flap was then reapproximated using 2-0 Vicryl in a running fashion. Both ovaries and tubes appeared normal. The uterus was placed back into the abdomen. The peritoneum was reapproximated using 2-0 Vicryl in a running fashion. The muscles were reapproximated using 2- 0 Vicryl in interrupted fashion. The fascia was reapproximated using 0 Vicryl in a running fashion. The subcutaneous tissues closed with 3-0 Vicryl running fashion. The skin was closed tim. Patient tolerated the procedure well, sponge and instrument counts were correct times 2 and she was taken to the recovery room in stable condition.
--- NOTE | 2023-09-10 09:39 | P.PNOBGPC ---
Subjective - Subjective Principal diagnosis: S/P 1*LTCS POD #1 Interval history: PT seen and examined. Denies N/V, F/C, CP, or calf pain. She is having some tachycardia with standing and shortness of breath. Her hgb today is 6.7. discussed giving one unit of blood and pt agrees to this. Patient reports: Reports appetite normal, Reports voiding normally, Reports pain well controlled, Reports ambulating normally [place]: doing well Objective - Vital Signs Latest vital signs: Vital Signs Temp Pulse Resp BP Pulse Ox 09/10/23 09:21 18 97 09/10/23 08:00 18 98 09/10/23 07:56 98 17 97/65 97 09/10/23 06:00 16 98 09/10/23 04:00 98.1 F 90 16 110/71 98 09/10/23 02:00 16 09/10/23 00:08 98 09/09/23 23:36 97.7 F 89 16 101/67 09/09/23 22:08 16 09/09/23 21:36 88 16 103/67 100 09/09/23 21:21 96 16 97/69 100 09/09/23 21:06 87 16 105/72 100 09/09/23 20:50 106/68 09/09/23 20:48 83 16 121/70 100 09/09/23 20:36 74 16 121/70 97 09/09/23 20:21 98 16 128/66 98 09/09/23 20:08 16 98 09/09/23 20:06 89 16 149/56 100 09/09/23 19:51 87 16 131/80 100 09/09/23 19:36 97.0 F L 68 16 125/80 100 09/09/23 19:08 16 100 Intake and Output 09/09/23 09/10/23 09/10/23 22:59 06:59 14:59 Intake Total 750 Output Total 270 1000 300 Balance 480 -1000 -300 Intake: Oral 750 Output: Urine 1000 300 Uretheral ([place]) 1000 Output, Quantitative 270 Blood Loss Other: Voiding Method Indwelling Catheter Indwelling Catheter - Exam Lungs: bilateral: normal Chest: Normal S1, Normal S2 Extremities: Present: normal Abdomen: Present: normal appearance, soft. Absent: distention, tenderness Incision: Present: normal, dry, intact Uterus: Present: normal, firm - Labs Labs: Abnormal Lab Results - Last 24 Hours (Table) 09/09/23 09/09/23 09/10/23 Range/Units 08:00 08:15 06:00 WBC 21.2 H (3.8-10.6) k/uL RBC 2.55 L (3.80-5.40) m/uL Hgb 6.5 L* D (11.4-16.0) gm/dL Hct 20.8 L (34.0-46.0) % Neutrophils # 17.9 H (1.3-7.7) k/uL U Marijuana (THC) Screen Detected H (NotDetected) Crossmatch See Detail Assessment and Plan (1) Status post primary low transverse section Current Visit: Yes Status: Acute Code(s): Z98.891 - HISTORY OF UTERINE SCAR FROM PREVIOUS SURGERY SNOMED Code(s): 567132034 Plan: 1. 1 unit of PRBCs 2. reg diet
[2023-09-10] MEDS: SIMETHICONE 80 MG CHEWABLE PO SCH (16:47)
--- NOTE | 2023-09-11 07:59 | P.PNOBGPC ---
Subjective - Subjective Principal diagnosis: S/P 1*LTCS POD #2 Interval history: Patient seen and examined. Denies nausea, vomiting, chest pain, shortness of breath Pain. She is no longer tachycardic with standing. Status post 1 unit of packed red blood cells. We'll check a CBC tomorrow morning. Patient reports: Reports appetite normal, Reports voiding normally, Reports pain well controlled, Reports ambulating normally [place]: doing well Objective - Vital Signs Latest vital signs: Vital Signs Temp Pulse Pulse Resp BP BP Pulse Ox 09/11/23 00:00 98.7 F 88 16 102/66 95 09/10/23 17:44 16 09/10/23 16:08 98.4 F 84 17 112/85 99 09/10/23 16:00 17 99 09/10/23 14:00 17 09/10/23 11:49 98.3 F 92 17 108/75 97 09/10/23 11:46 98.3 F 97 17 108/75 95 09/10/23 11:15 92 17 109/76 97 09/10/23 10:15 98.1 F 83 17 116/81 99 09/10/23 09:55 98.8 F 95 17 100/71 97 09/10/23 09:46 98.2 F 88 18 102/65 95 09/10/23 09:21 18 97 09/10/23 08:00 18 98 - Exam Lungs: bilateral: normal Chest: Normal S1, Normal S2 Extremities: Present: normal Abdomen: Present: normal appearance, soft. Absent: distention, tenderness Incision: Present: normal, dry, intact Uterus: Present: normal, firm - Labs Labs: Abnormal Lab Results - Last 24 Hours (Table) 09/09/23 Range/Units 08:00 Crossmatch See Detail Assessment and Plan (1) Status post primary low transverse section Current Visit: Yes Status: Acute Code(s): Z98.891 - HISTORY OF UTERINE SCAR FROM PREVIOUS SURGERY SNOMED Code(s): 201994948 Plan: 1. Increase ambulation 2. Regular diet
--- NOTE | 2023-09-12 08:46 | P.DS ---
Providers Date of admission: 09/09/23 07:50 Expected date of discharge: 09/12/23 Attending physician: Melissa Washington Primary care physician: Stated None - Discharge Diagnosis(es) (1) Status post primary low transverse section Current Visit: Yes Status: Acute Hospital Course: Pt Unaided in labor. She underwent a primary low transverse for arrest of descent and category 2 heart tones. course Included anemia down to 6.7 and she was symptomatic. She did get 1 unit of packed red blood cells. She denies nausea, vomiting, chest pain, shortness of breath or calf pain. Patient will be discharged home day #3 in stable condition. Plan - Discharge Summary New Discharge Prescriptions: New Ibuprofen [Motrin] 600 mg PO Q6H #30 tab Discharge Medication List Ibuprofen [Motrin] 600 mg PO Q6H #30 tab 09/12/23 [Rx] Follow up Appointment(s)/Referral(s): Melissa Washington DO [Doctor of Osteopathic Medicine] - 6 Weeks Discharge Disposition: HOME SELF-CARE
[2023-09-12 09:20] VITALS: BP 111/75; PULSE 71; RESP 16; TEMP 97.5
--- NOTE | 2023-09-13 12:29 | CDI ---
Documentation Clarification Form Date: 09/13/23 From: Priscila Lowe Admit Date: 09/09/2023 07:50:00 AM Patient Name: Kathy Hampton Visit Number: [id number] Discharge Date: 09/12/2023 02:00:00 PM ATTENTION: The Clinical Documentation Specialists (CDI) and [facility] Coding Staff appreciate your assistance in clarifying documentation. Please respond to the clarification below the line at the bottom and electronically sign. The CDI & [facility] Coding staff will review the response and follow-up if needed. Please note: Queries are made part of the Legal Health Record. If you have any questions, please contact the author of this message via ITS. Dr. Melissa Washington, Unspecified anemia is documented in discharge summary. Additional specificity regarding the type & acuity of anemia is requested. History/Risk Factors: S/P low transverse C/S, used vaping, Strept B carrier state Clinical indicators: She is having some tachycardia with standing and shortness of breath. Her HGB (09/09) is 6.7. EBL: 800 Hemoglobin: 09/08-9.8, 09/09-6.5 Hematocrit: 09/08-31.0, 09/09-20.8 Treatment: I unit of packed red blood cells 12/10 Please clarify the type and acuity of anemia: [ x ] Acute blood loss anemia of puerperium [ ] Unable to determine [ ] Other, please specify MTDD
== END 2023-09-12 14:00 | disposition home or self-care (01) | DRG 787 ==
LOC: FBPOP 07:26 → 4FBP 07:50
PROVIDERS: ADMIT Obstetrics & Gynecology; ATTEND Obstetrics & Gynecology
PROC: 10D00Z1 Extraction of Products of Conception, Low, Open Approach (ICD-10-PCS; principal; 2023-09-09 18:56)
PROC: 30233N1 Transfusion of Nonautologous Red Blood Cells into Peripheral Vein, Percutaneous Approach (ICD-10-PCS; 2023-09-10)
DX: O48.0 Post-term pregnancy (principal); D62 Acute posthemorrhagic anemia; O90.81 Anemia of the puerperium; O76 Abnormality in fetal heart rate and rhythm complicating labor and delivery; O62.1 Secondary uterine inertia; B95.1 Streptococcus, group B, as the cause of diseases classified elsewhere; O99.824 Streptococcus B carrier state complicating childbirth; O99.334 Smoking (tobacco) complicating childbirth; F17.290 Nicotine dependence, other tobacco product, uncomplicated; Z3A.40 40 weeks gestation of pregnancy; Z37.0 Single live birth
CPT/HCPCS: 80306; 85025; 86850; 86900; 86901; 86920; 99213